=== PATIENT | female | born 1980 | race Caucasian/White ===

== ENCOUNTER 2019-11-13 17:50 | Emergency (ER) | payer MEDICARE, MEDICAID ==
[~2019-11-13] VITALS: Ht 162.6 cm; Wt 88.5 kg
[~2019-11-13 17:50] MED LIST: ALPRAZOLAM ER1 MG PO; AMBIEN 5 MG TABL5 M1 PO; AMITRIPTYLINE H50 M3 PO; B-12 COMPL1000 MCG/1 IM; BENTYL20 MG PO; CHLORPROMAZINE25 M1 IM; CHOLESTYRAMINE R5 GM PO; CLONAZEPAM 1 MG1 M1 PO; CYCLAFEM1 EAC1 PO; HYDROCODONE-AP1 EAC6 PO; IRON325 PO; LIORESAL 10 MG10 MG PO; LOXAPINE10 MG PO; MOBIC15 MG PO; NEXIUM40 MG PO; NORCO 5-325 TA1 EACH PO; ONDANSETRON HCL4 M2 PO; OXYCONTIN10 M1 PO; PHENERGAN 25 MG25 M1 PO; PRILOSEC20 MG PO; RISPERDAL25 MG/2 ML IM; SENOKOT-S1 TA1 PO; TRAZODONE HCL100 MG PO; TRICOR145 MG PO; VENLAFAXINE HCL75 M2 PO; ZOLOFT50 MG PO
[2019-11-13 18:13] LABS: ABSOLUTE BASOPHILS 0.1 thou/uL (0.0-0.2); ABSOLUTE EOSINOPHILS 0.3 thou/uL (0.0-0.7); ABSOLUTE LYMPHOCYTES 2.9 thou/uL (0.8-5.3); ABSOLUTE MONOCYTES 0.9 thou/uL (0.0-1.2); ABSOLUTE NEUTROPHILS 9.5 thou/uL (1.6-8.1); BASOPHILS 0.7 %; EOSINOPHILS 1.9 %; HEMATOCRIT 34.8 % (37.0-47.0); HEMOGLOBIN 11.6 gm/dL (12.0-15.0); LYMPHOCYTES 21.2 %; MCH 28.7 pg (26.0-34.0); MCHC 33.4 g/dL (28.0-37.0); MCV 85.8 fL (80.0-100.0); MONOCYTES 6.4 %; MPV 8.7 fl. (7.2-11.1); NUCLEATED RBCS 0 /100WBC; PLATELET COUNT* 303 thou/uL (150-400); POLYS 69.8 %; RBC 4.06 mil/uL (4.20-5.00); RDW-CV 13.7 % (10.5-14.5); WBC 13.6 thou/uL (4.0-11.0)
[2019-11-13 18:17] LABS: URINE BILIRUBIN NEGATIVE (Negative); URINE BLOOD NEGATIVE (Negative); URINE CLARITY CLEAR; URINE COLOR YELLOW; URINE GLUCOSE-RANDOM NEGATIVE (Negative); URINE KETONES NEGATIVE (Negative); URINE LEUKOCYTES-REFLEX NEGATIVE (Negative); URINE NITRITE-REFLEX NEGATIVE (Negative); URINE PROTEIN NEGATIVE (Negative); URINE UROBILINOGEN 0.2 E.U./dl (0.2-1.0)
[2019-11-13] MEDS ORDERED: VENLAFAXINE HC100 MG PO (18:21)
[2019-11-13] MEDS ORDERED: LITHATE20 MG PO (18:22)
[2019-11-13] MEDS ORDERED: PRAZOSIN 1 MG CA1 MG PO (18:22)
[2019-11-13] MEDS ORDERED: DESYREL150 MG PO (18:22)
[2019-11-13] MEDS ORDERED: MAGNESIUM100 MG PO (18:22)
[2019-11-13] MEDS ORDERED: [UNRECOGNIZED DRUG - OTHER] (18:23)
[2019-11-13 18:24] LABS: CALCIUM 8.9 mg/dL (8.5-10.1); CREATININE 1.1 mg/dL (0.6-1.3); POTASSIUM 3.3 mmol/L (3.5-5.1)
[2019-11-13 18:26] LABS: AMP/METHAMP Negative (Negative); BARBITURATES Negative (Negative); BENZODIAZEPINES Negative (Negative); COCAINE Negative (Negative); METHADONE Negative (Negative); OPIATES Negative (Negative); PCP Negative (Negative); THC Negative (Negative)
[2019-11-13 18:29] LABS: ALBUMIN 4.1 g/dL (3.4-5.0); TOTAL BILIRUBIN 0.5 mg/dL (<0.1-1.0); TOTAL PROTEIN 8.4 g/dL (6.4-8.2)
[2019-11-13 18:31] LABS: SALICYLATE < 2.8 mg/dL (2.8-20.0)
[2019-11-13 18:32] LABS: ACETAMINOPHEN < 2 ug/mL (10-30); ALCOHOL < 10 mg/dL (<10)
[2019-11-14] MEDS ORDERED: GATTEX5 MG SUBQ (05:51)
[2019-11-15 08:19] LABS: CALCIUM 8.2 mg/dL (8.5-10.1); CREATININE 0.8 mg/dL (0.6-1.3); MAGNESIUM 1.4 mg/dL (1.8-2.4); POTASSIUM 3.5 mmol/L (3.5-5.1)
[2019-11-15] MEDS ORDERED: RISPERDAL 3 MG T3 M1 PO (23:47)
[2019-11-16 15:05] VITALS: BP 106/57
== END 2019-11-16 15:05 ==
LOC: M.ERS 17:50
PROVIDERS: Family Medicine
DX: F32.9 Major depressive disorder, single episode, unspecified (principal); R45.851 Suicidal ideations; J45.909 Unspecified asthma, uncomplicated; F84.0 Autistic disorder; K21.9 Gastro-esophageal reflux disease without esophagitis; Z90.49 Acquired absence of other specified parts of digestive tract; Z88.8 Allergy status to other drugs, medicaments and biological substances